=== PATIENT | male | born 1945 | race Caucasian/White ===

== ENCOUNTER 2018-10-04 19:15 | Observation (INO) | payer MEDICARE, OTHER, MEDICAID ==
[2018-10-04 20:26] LABS: ADD MAN DIFF? NO
[2018-10-04] MEDS: ASPIRIN 325 MG TAB PO (20:27)
[2018-10-04] MEDS: NITROGLYCERIN 2% 1 GM OINT PKT TD (20:27)
[2018-10-04 20:28] LABS: BASOPHIL # 0.1 10^3/ul (0.0-0.1); BASOPHILS % 0.6 % (0.0-2.0); EOSINOPHILS # 0.5 10^3/ul (0.0-0.5); EOSINOPHILS % 5.9 % (0.0-7.0); HEMATOCRIT 38.6 % (42.0-52.0); HEMOGLOBIN 13.3 g/dl (14.0-18.0); LYMPHOCYTES # 2.4 10^3/ul (0.8-2.9); LYMPHOCYTES % 27.2 % (15.0-51.0); MEAN CORPUSCULAR HEMOGLOBIN 32.7 pg (29.0-33.0); MEAN CORPUSCULAR HGB CONC 34.5 g/dl (32.0-37.0); MEAN CORPUSCULAR VOLUME 94.8 fl (82.0-101.0); MEAN PLATELET VOLUME 9.8 fl (7.4-10.4); MONOCYTES % 11.5 % (0.0-11.0); NEUTROPHIL # 4.9 10^3/ul (1.6-7.5); NEUTROPHILS % 54.4 % (39.0-77.0); PLATELET COUNT 166 10^3/UL (140-415); RED BLOOD COUNT 4.07 10^6/ul (4.70-6.10); RED CELL DISTRIBUTION WIDTH 12.3 % (11.5-14.5)
[2018-10-04 20:48] LABS: ALANINE AMINOTRANSFERASE 66 IU/L (13-69); ALBUMIN 4.2 g/dl (3.3-4.9); ALBUMIN/GLOBULIN RATIO 1.75; ALKALINE PHOSPHATASE 101 IU/L (42-121); ANION GAP 8 (5-13); ASPARTATE AMINO TRANSFERASE 88 IU/L (15-46); BILIRUBIN,INDIRECT 0.4 mg/dl (0-1.1); BILIRUBIN,TOTAL 0.4 mg/dl (0.2-1.3); BLOOD UREA NITROGEN 25 mg/dl (7-20); CALCIUM 9.1 mg/dl (8.4-10.2); CARBON DIOXIDE 25 mmol/L (21-31); CHLORIDE 109 mmol/L (97-110); CREATININE 1.38 mg/dl (0.61-1.24); GLUCOSE 112 mg/dl (70-220); INR 0.97; POTASSIUM 4.2 mmol/L (3.5-5.1); SODIUM 142 mmol/L (135-144); TOTAL PROTEIN 6.6 g/dl (6.1-8.1)
[2018-10-04 20:49] LABS: PARTIAL THROMBOPLASTIN TIME 24.1 Sec (23.0-35.0)
[2018-10-04 21:00] LABS: B-TYPE NATRIURETIC PEPTIDE 104 PG/ML (0-125); TROPONIN-I < 0.012 ng/ml (0.000-0.120)
[2018-10-04] MEDS ORDERED: ACETAMINOPHEN 325 MG TAB PO ×2 (22:00→22:30)
[2018-10-04] MEDS ORDERED: ONDANSETRON 4 MG INJ IV ×2 (22:00→22:30)
[2018-10-04] MEDS ORDERED: morphine 2 MG INJ IV (22:30)
[2018-10-04] MEDS ORDERED: NITROGLYCERIN (SL) 0.4 MG TAB SL (22:30)
[2018-10-04] MEDS ORDERED: DOCUSATE SODIUM 100 MG CAP PO (22:30)
[2018-10-04] MEDS ORDERED: BISACODYL (EC) 5 MG TAB PO (22:30)
[2018-10-04] MEDS ORDERED: NACL 0.9% 3 ML SYG IV (22:30)
[2018-10-05 01:45] LABS: CREATINE KINASE 167 IU/L (23-200)
[2018-10-05 01:56] LABS: CK INDEX 1.6; CK-MB 2.71 ng/ml (0.0-2.4); TROPONIN-I < 0.012 ng/ml (0.000-0.120)
[2018-10-05] MEDS ORDERED: NON-FORMULARY/PATIENT OWN MED (Dexlansoprazole (Dexilant) 60 MG) PO (05:04)
[2018-10-05] MEDS ORDERED: DOCUSATE SODIUM 100 MG CAP PO (05:30)
[2018-10-05 06:04] LABS: ADD UMIC YES; UR ASCORBIC ACID NEGATIVE (NEGATIVE); UR BILIRUBIN (Dip) NEGATIVE (NEGATIVE); UR BLOOD (Dip) NEGATIVE (NEGATIVE); UR CLARITY CLEAR (CLEAR); UR COLOR YELLOW (YELLOW); UR GLUCOSE (Dip) NEGATIVE (NEGATIVE); UR KETONES (Dip) NEGATIVE (NEGATIVE); UR LEUKOCYTE ESTERASE (Dip) NEGATIVE Leu/ul (NEGATIVE); UR NITRITE (Dip) NEGATIVE (NEGATIVE); UR RBC 0 /HPF (0-5); UR SPECIFIC GRAVITY (Dip) 1.015 (1.003-1.030); UR TOTAL PROTEIN (Dip) 1+ mg/dl (NEGATIVE); UR UROBILINOGEN (Dip) 2+ mg/dL (NEGATIVE); UR WBC 0 /HPF (0-5)
[2018-10-05] MEDS: PANTOPRAZOLE (EC) 40 MG TAB PO ×2 (06:19→16:46)
[2018-10-05 07:18] LABS: ADD MAN DIFF? NO
[2018-10-05 07:25] LABS: BASOPHILS % 0.3 % (0.0-2.0); EOSINOPHILS # 0.3 10^3/ul (0.0-0.5); EOSINOPHILS % 5.6 % (0.0-7.0); HEMATOCRIT 35.8 % (42.0-52.0); HEMOGLOBIN 12.4 g/dl (14.0-18.0); LYMPHOCYTES # 1.5 10^3/ul (0.8-2.9); LYMPHOCYTES % 25.7 % (15.0-51.0); MEAN CORPUSCULAR HEMOGLOBIN 32.5 pg (29.0-33.0); MEAN CORPUSCULAR HGB CONC 34.6 g/dl (32.0-37.0); MEAN CORPUSCULAR VOLUME 93.7 fl (82.0-101.0); MEAN PLATELET VOLUME 9.9 fl (7.4-10.4); MONOCYTE # 0.7 10^3/ul (0.3-0.9); MONOCYTES % 12.6 % (0.0-11.0); NEUTROPHIL # 3.2 10^3/ul (1.6-7.5); NEUTROPHILS % 55.5 % (39.0-77.0); PLATELET COUNT 138 10^3/UL (140-415); RED BLOOD COUNT 3.82 10^6/ul (4.70-6.10); RED CELL DISTRIBUTION WIDTH 12.3 % (11.5-14.5)
[2018-10-05 07:25] LABS: WHITE BLOOD COUNT 5.7 10^3/ul (4.8-10.8)
[2018-10-05 07:39] LABS: HEMOGLOBIN A1C 5.2 % (0-5.9)
[2018-10-05 07:44] LABS: ALANINE AMINOTRANSFERASE 196 IU/L (13-69); ALBUMIN 3.4 g/dl (3.3-4.9); ALBUMIN/GLOBULIN RATIO 1.41; ALKALINE PHOSPHATASE 130 IU/L (42-121); ANION GAP 4 (5-13); ASPARTATE AMINO TRANSFERASE 191 IU/L (15-46); BILIRUBIN,INDIRECT 0.8 mg/dl (0-1.1); BILIRUBIN,TOTAL 1.4 mg/dl (0.2-1.3); BLOOD UREA NITROGEN 19 mg/dl (7-20); CALCIUM 8.4 mg/dl (8.4-10.2); CARBON DIOXIDE 26 mmol/L (21-31); CHLORIDE 111 mmol/L (97-110); CHOL/HDL RATIO 3.1 RATIO; CHOLESTEROL 135 mg/dl (100-200); CREATININE 1.15 mg/dl (0.61-1.24); GLUCOSE 105 mg/dl (70-220); HDL CHOLESTEROL 43 mg/dl (31-75); LDL CHOLESTEROL,CALCULATED 73 mg/dl; MAGNESIUM 2.1 mg/dl (1.7-2.5); POTASSIUM 4.1 mmol/L (3.5-5.1); SODIUM 141 mmol/L (135-144); TOTAL PROTEIN 5.8 g/dl (6.1-8.1); TRIGLYCERIDES 96 mg/dl (0-149)
[2018-10-05 07:46] LABS: CREATINE KINASE 142 IU/L (23-200)
[2018-10-05 07:56] LABS: CK INDEX 1.9; CK-MB 2.63 ng/ml (0.0-2.4); TROPONIN-I < 0.012 ng/ml (0.000-0.120)
[2018-10-05 08:37] LABS: THYROID STIMULATING HORMONE 0.992 MIU/L (0.465-4.680)
[2018-10-05] MEDS: ASPIRIN 81 MG TAB PO (08:50)
[2018-10-05] MEDS: POLYETHYLENE GLYCOL 17 GM PACKET PO (08:50)
[2018-10-05] MEDS: METOPROLOL 50 MG TAB PO (08:51)
[2018-10-05] MEDS: AMLODIPINE 5 MG TAB PO (08:51)
[2018-10-05] MEDS: ATORVASTATIN 10 MG TAB PO (08:51)
[2018-10-05] MEDS ORDERED: AMLODIPINE BESYLATE 5 MG MC (09:00)
[2018-10-05 12:16] LABS: LIPASE 117 U/L (23-300)
[2018-10-05 12:17] LABS: AMYLASE 64 U/L (11-123)
[2018-10-05] MEDS: SUCRALFATE (100 MG/ML) 10ML CUP PO ×2 (16:46→20:42)
[2018-10-05] MEDS: TAMSULOSIN (SR) 0.4 MG CAP PO (20:42)
[2018-10-05] MEDS ORDERED: NON-FORMULARY/PATIENT OWN MED (Simvastatin 40 MG) PO (21:00)
[2018-10-05] MEDS ORDERED: ATORVASTATIN 20 MG TAB PO (21:00)
[2018-10-06 06:17] LABS: ADD MAN DIFF? NO; HAAIG REFLEX REFLEX FILED
[2018-10-06 06:30] LABS: WHITE BLOOD COUNT 5.3 10^3/ul (4.8-10.8)
[2018-10-06 06:30] LABS: BASOPHILS % 0.6 % (0.0-2.0); EOSINOPHILS # 0.3 10^3/ul (0.0-0.5); EOSINOPHILS % 4.7 % (0.0-7.0); HEMATOCRIT 39.4 % (42.0-52.0); HEMOGLOBIN 13.8 g/dl (14.0-18.0); LYMPHOCYTES # 1.9 10^3/ul (0.8-2.9); MEAN CORPUSCULAR VOLUME 94.3 fl (82.0-101.0); MEAN PLATELET VOLUME 9.9 fl (7.4-10.4); MONOCYTE # 0.7 10^3/ul (0.3-0.9); MONOCYTES % 12.9 % (0.0-11.0); NEUTROPHIL # 2.5 10^3/ul (1.6-7.5); NEUTROPHILS % 46.4 % (39.0-77.0); PLATELET COUNT 133 10^3/UL (140-415); POSITIVE DIFF @See below; RED BLOOD COUNT 4.18 10^6/ul (4.70-6.10); RED CELL DISTRIBUTION WIDTH 12.2 % (11.5-14.5)
[2018-10-06 06:47] LABS: CREATINE KINASE 105 IU/L (23-200)
[2018-10-06 06:57] LABS: ALANINE AMINOTRANSFERASE 233 IU/L (13-69); ALKALINE PHOSPHATASE 170 IU/L (42-121); ANION GAP 9 (5-13); ASPARTATE AMINO TRANSFERASE 122 IU/L (15-46); BILIRUBIN,INDIRECT 0.6 mg/dl (0-1.1); BILIRUBIN,TOTAL 0.6 mg/dl (0.2-1.3); BLOOD UREA NITROGEN 17 mg/dl (7-20); CARBON DIOXIDE 26 mmol/L (21-31); CHLORIDE 105 mmol/L (97-110); CHOL/HDL RATIO 2.7 RATIO; CHOLESTEROL 146 mg/dl (100-200); CREATININE 1.23 mg/dl (0.61-1.24); GLUCOSE 102 mg/dl (70-220); HDL CHOLESTEROL 53 mg/dl (31-75); LDL CHOLESTEROL,CALCULATED 75 mg/dl; MAGNESIUM 1.9 mg/dl (1.7-2.5); SODIUM 140 mmol/L (135-144); TOTAL PROTEIN 6.1 g/dl (6.1-8.1); TRIGLYCERIDES 89 mg/dl (0-149)
[2018-10-06 06:59] LABS: CK INDEX 1.6; CK-MB 1.71 ng/ml (0.0-2.4); TROPONIN-I < 0.012 ng/ml (0.000-0.120)
[2018-10-06 07:16] LABS: HEPATITIS B SURFACE ANTIGEN NEGATIVE (NEGATIVE)
[2018-10-06 07:34] LABS: HEPATITIS B CORE ANTIBODY NEGATIVE (NEGATIVE); HEPATITIS C VIRAL ANTIBODY NEGATIVE (NEGATIVE)
[2018-10-06 08:19] LABS: LIPASE 123 U/L (23-300)
[2018-10-06 08:19] LABS: AMYLASE 77 U/L (11-123)
[2018-10-06] MEDS: AMLODIPINE 5 MG TAB PO (08:19)
[2018-10-06] MEDS: PANTOPRAZOLE (EC) 40 MG TAB PO ×2 (08:19→17:56)
[2018-10-06] MEDS: SUCRALFATE (100 MG/ML) 10ML CUP PO ×4 (08:20→20:42)
[2018-10-06] MEDS: ASPIRIN 81 MG TAB PO (08:20)
[2018-10-06] MEDS: METOPROLOL (XL) 50 MG TAB PO (08:20)
[2018-10-06] MEDS: POLYETHYLENE GLYCOL 17 GM PACKET PO (08:20)
[2018-10-06] MEDS ORDERED: PROPOFOL 20 ML (15:13)
[2018-10-06] MEDS: TAMSULOSIN (SR) 0.4 MG CAP PO (20:42)
[2018-10-07 07:11] LABS: ADD MAN DIFF? NO
[2018-10-07 07:16] LABS: WHITE BLOOD COUNT 6.9 10^3/ul (4.8-10.8)
[2018-10-07 07:16] LABS: BASOPHILS % 0.6 % (0.0-2.0); EOSINOPHILS # 0.3 10^3/ul (0.0-0.5); EOSINOPHILS % 4.5 % (0.0-7.0); HEMATOCRIT 39.6 % (42.0-52.0); HEMOGLOBIN 13.7 g/dl (14.0-18.0); LYMPHOCYTES # 1.9 10^3/ul (0.8-2.9); LYMPHOCYTES % 27.7 % (15.0-51.0); MEAN CORPUSCULAR HEMOGLOBIN 32.5 pg (29.0-33.0); MEAN CORPUSCULAR HGB CONC 34.6 g/dl (32.0-37.0); MEAN CORPUSCULAR VOLUME 94.1 fl (82.0-101.0); MEAN PLATELET VOLUME 9.7 fl (7.4-10.4); MONOCYTES % 14.2 % (0.0-11.0); NEUTROPHIL # 3.7 10^3/ul (1.6-7.5); NEUTROPHILS % 52.9 % (39.0-77.0); PLATELET COUNT 145 10^3/UL (140-415); RED BLOOD COUNT 4.21 10^6/ul (4.70-6.10); RED CELL DISTRIBUTION WIDTH 12.3 % (11.5-14.5)
[2018-10-07 07:45] LABS: ALANINE AMINOTRANSFERASE 160 IU/L (13-69); ALBUMIN 3.8 g/dl (3.3-4.9); ALKALINE PHOSPHATASE 164 IU/L (42-121); ANION GAP 8 (5-13); ASPARTATE AMINO TRANSFERASE 62 IU/L (15-46); BILIRUBIN,INDIRECT 0.5 mg/dl (0-1.1); BILIRUBIN,TOTAL 0.5 mg/dl (0.2-1.3); BLOOD UREA NITROGEN 23 mg/dl (7-20); CALCIUM 9.1 mg/dl (8.4-10.2); CARBON DIOXIDE 23 mmol/L (21-31); CHLORIDE 109 mmol/L (97-110); CREATININE 1.19 mg/dl (0.61-1.24); GLUCOSE 120 mg/dl (70-220); POTASSIUM 4.2 mmol/L (3.5-5.1); SODIUM 140 mmol/L (135-144); TOTAL PROTEIN 6.5 g/dl (6.1-8.1)
[2018-10-07] MEDS: PANTOPRAZOLE (EC) 40 MG TAB PO (07:58)
[2018-10-07] MEDS: POLYETHYLENE GLYCOL 17 GM PACKET PO (08:23)
[2018-10-07] MEDS: SUCRALFATE (100 MG/ML) 10ML CUP PO ×2 (08:23→13:47)
[2018-10-07] MEDS: ASPIRIN 81 MG TAB PO (08:23)
[2018-10-07] MEDS: AMLODIPINE 5 MG TAB PO (08:24)
[2018-10-07] MEDS: METOPROLOL (XL) 50 MG TAB PO (08:24)
[2018-10-07 13:57] LABS: ANA SCREEN NEGATIVE (NEGATIVE)
[2018-10-08 12:28] LABS: MITOCHONDRIAL TB NEGATIVE (NEGATIVE); SMOOTH MUSCLE AB SCREEN NEGATIVE (NEGATIVE)
== END 2018-10-07 16:28 | disposition home or self-care (01) ==
LOC: E/R 19:15 → TEL 22:01
DX: R07.89 Other chest pain (principal); K29.30 Chronic superficial gastritis without bleeding; I25.10 Atherosclerotic heart disease of native coronary artery without angina pectoris; Z95.5 Presence of coronary angioplasty implant and graft; I10 Essential (primary) hypertension; E78.5 Hyperlipidemia, unspecified; K59.00 Constipation, unspecified; J45.909 Unspecified asthma, uncomplicated; K80.20 Calculus of gallbladder without cholecystitis without obstruction; E66.9 Obesity, unspecified; Z68.30 Body mass index [BMI] 30.0-30.9, adult; N40.0 Benign prostatic hyperplasia without lower urinary tract symptoms; K21.9 Gastro-esophageal reflux disease without esophagitis; Z87.891 Personal history of nicotine dependence; I25.2 Old myocardial infarction; Z79.82 Long term (current) use of aspirin; Z23 Encounter for immunization
CPT/HCPCS: 36415; 71045; 71046; 74019; 76700; 80053; 80061; 81001; 82150; 82550; 82553; 83036; 83690; 83735; 83880; 84443; 84484; 85025; 85610; 85730; 86038; 86255; 86704; 86709; 86803; 87340; 88305; 88312; 90686; 93005; 93306; 99285-25; G0378